=== PATIENT | female | born 1935 | race Caucasian/White ===

== ENCOUNTER → 2017-06-08 | Outpatient (CLI) | payer MEDICARE, BC ==
[~2017-06-08] MED LIST: COLACE100 MG PO; COREG12.5 MG PO; GLUCOPHAGE500 MG PO; LEVOTHROID (SY25 MCG PO; PROTONIX40 MG PO; TYLENOL EXTRA500 MG PO; VITAMIN D1000 UNIT PO; XARELTO20 MG PO; ZOLOFT25 MG PO
--- NOTE | ~2017-06-08 | ESTC ---
Cardiac Perfusion Imaging Demographics Patient Name CHELA Blanc Gender Female Patient Number [id number] Race Visit Number [id number] Ethnicity [employer] ID Room Number Accession Number [id number] Height 65 inches Date of 1935 Weight 174 pounds Interpreting Marko Oropeza MD Date of study 06/08/2017 Physician Supervising /JOSSY Montoya NM Technologist Linda Lebron APRN Ordering Physician Marko Oropeza MD Stress process controls technician Stress ECG Reading Fred Montoya Nurse Bayron Cleary Physician WILMA Segura Procedure Procedure Type: Nuclear Stress Test:Pharmacological, Cardiolite Stress Test Procedure Start time: 06/08/2017 00:00 Indications: Chest pain and Dyspnea with exertion. 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 Conclusions Summary Cardiolite SPECT images demonstrate homogenous uptake of radioactive tracer. NO evidence of inducible reversible defect and no evidence of underlying fixed defect. TID is markedly abnormal at 1.26 Gated images demonstrate overall normal left ventricular systolic function without inducible wall motion abnormalities. LVEF is 62% Stress Protocols Resting ECG RSR With non specific T wave changes Q wave V2 and V3 Resting HR:81 bpm Resting BP:185/86 mmHg Pre-stress physical exam: No complaints today but had been having chest pain off and n Stress Protocol:Pharmacologic Peak HR:97 bpm HR response: Appropriate Peak BP:175/83 mmHg BP response: Appropriate Predicted HR: 138 bpm HR/BP product:26694 % of predicted HR: 70 Reason for termination:Infusion complete ECG Findings No ECG changes suggestive of ischemia. Arrhythmias No rhythm abnormality. Symptoms Nausea. Stress Interpretation Negative pharmacologic stress ECG for ischemia. Normal heart rate and blood pressure response to stress. No atrial or ventricular arrhythmias. Stress supervision and interpretation provided by Ingrid Ibarra APRN . Imaging Results Applied corrections - Motion correction applied High risk findings Summed scores - LV dilatation (TID) : 1.26 - Summed stress score: 12 - Summed rest score: 13 - Summed difference score: -1 Stress ejection Ejection fraction:60 % EDV :93 ml ESV :37 ml Stroke volume :56 ml LV mass :115 gr Imaging Protocols Rest Stress Isotope:Tc99m Sestamibi IV Isotope: Tc99m Sestamibi IV Isotope dose:13.3 mCi Isotope dose:41.7 mCi Date:06/08/2017 07:22 Date:06/08/2017 08:58 Technique: SPECT Technique: Gated Supine SPECT Supine Scan Time:45-60 minutes post injection Procedure Medications - Regadenoson (Lexiscan) 0.4 mg IV over 10-15 sec. I.V. 0.4 mg. Medications administered per verbal order and read back to physician prior to administration. Medical History Admission Data Admission date: 06/08/2017 Admission Time: 07:03 Hospital Status: Outpatient. Signatures dtt: Sandip Zhu (cardio) dtd: 06/08/17 0000 Physician Self Edit
== END | disposition disaster alternative care site (69) ==
LOC: GRAD 07:03
DX: R06.09 Other forms of dyspnea (principal); R07.9 Chest pain, unspecified; E11.9 Type 2 diabetes mellitus without complications
CPT/HCPCS: A9500; J2785